=== PATIENT | male | born 1990 | race Two or more races ===

== ENCOUNTER 2016-10-20 11:48 | Emergency (ER) | payer OTHER ==
[2016-10-20 11:58] VITALS: BP 129/85; PULSE 89; TEMP 97.7; BMI 32.5
--- NOTE | 2016-10-20 12:20 | PDOC ---
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; NO OTHER TRAUMA NOTED Upper Extremity Pain Location: right: wrist Past History - Past Medical History Allergies/Adverse Reactions: Allergies Allergy/AdvReac Type Severity Reaction Status Date / Time No Known Allergies Allergy Verified 10/20/16 11:53 Home Medications: Ambulatory Orders NK [No Known Home Medication] 10/20/16 Anemia: No Suicide Attempt (Hx): No Thyroid Disease: No - Surgical History Orthopedic Surgery: Yes (BILATERAL KNEE-MENISCUS) - Immunization History Immunization Up to Date: Yes - Psycho/Social/Smoking Cessation Hx Anxiety: No Suicidal Ideation: No Smoking Status: Yes Smoking History: Never smoked Have you smoked in the past 12 months: No Number of Cigarettes Smoked Daily: 3 Cigars Per Day: 0 Information on smoking cessation initiated: Yes 'Breaking Loose' booklet given: 10/22/14 Hx Alcohol Use: No Drug/Substance Use Hx: No Substance Use Type: None Hx Substance Use Treatment: No Review of Systems - Review of Systems Constitutional: Yes: Malaise. No: Chills, Fever Respiratory: No: Symptoms reported, Cough Musculoskeletal: Yes: Joint Pain, Joint Stiffness. No: Joint Swelling, Muscle Pain Neurological: No: Numbness, Paresthesia, Tingling *Physical Exam - Vital Signs Last Vital Signs Temp Pulse Resp BP Pulse Ox 97.7 F 89 16 129/85 98 10/20/16 11:54 10/20/16 11:54 10/20/16 11:54 10/20/16 11:54 10/20/16 11:54 - Physical Exam General Appearance: Yes: Appropriately Dressed. No: Apparent Distress HEENT: positive: Pharynx Normal Respiratory/Chest: positive: Lungs Clear, Normal Breath Sounds. negative: Chest Tender Musculoskeletal: positive: Other (TENDER TO RADIAL LATERAL WRIST; NOT HOT TO TOUCH, NO REDNESS; LIMITED ROM) Integumentary: negative: Erythema, Rash, Swelling, Bruising Neurologic: positive: Fully Oriented, Alert. negative: Sensory Deficit ED Treatment Course - RADIOLOGY Radiology Studies Ordered: Category Date Time Status WRIST W/HAND-RIGHT* [RAD] Stat Radiology 10/20/16 12:10 Ordered Medical Decision Making - Medical Decision Making 10/20/16 12:56 WILL SUGGEST PT FOLLOW UP WITH [facility] FOR FURTHER WORK; WILL SUGGEST SPLINT AT BEDTIME AND NSAIDS *DC/Admit/Observation/Transfer Diagnosis at time of Disposition: Strain of right wrist Qualifiers: Encounter type: initial encounter Qualified Code(s): S66.911A - Strain of unspecified muscle, fascia and tendon at wrist and hand level, right hand, initial encounter - Discharge Dispostion Disposition: HOME Condition at time of disposition: Stable Admit: No - Referrals Referrals: Adrian Mckeon MD [Staff Physician] - - Patient Instructions Additional Instructions: WEAR SPLINT NEEDED AND AT BED; NAPROSYN X 10 DAYS - Post Discharge Activity Work/School Note: Back to Work
[2016-10-20] MEDS ORDERED: KETOROLAC TROMETHAMINE 60 MG/2 ML VIAL IM ONE (12:33)
[2016-10-20] MEDS ORDERED: KETOROLAC TROMETHAMINE 60 MG/2 ML VIAL ONE (12:35)
== END 2016-10-20 13:05 | disposition home or self-care (01) ==
LOC: JERFT 11:48
PROC: 3E0233Z Introduction of Anti-inflammatory into Muscle, Percutaneous Approach (ICD-10-PCS; principal; 2016-10-20)
PROC: 2W3EX1Z Immobilization of Right Hand using Splint (ICD-10-PCS; 2016-10-20)
DX: S66.911A Strain of unspecified muscle, fascia and tendon at wrist and hand level, right hand, initial encounter (principal); X58.XXXA Exposure to other specified factors, initial encounter; Y93.89 Activity, other specified; Y92.9 Unspecified place or not applicable; Z72.0 Tobacco use
CPT/HCPCS: 29125; 73110-TC-RT; 73130-TC-RT; 96372; 99281-25

== ENCOUNTER 2018-10-31 09:29 | Emergency (ER) | payer SELFPAY ==
[2018-10-31 09:56] VITALS: BP 139/70; PULSE 74; TEMP 97.9; BMI 35.4
--- NOTE | 2018-10-31 11:25 | PDOC ---
History of Present Illness - General Chief Complaint: Cold Symptoms Stated Complaint: FLU SYMPTOMS Time Seen by Provider: 10/31/18 11:12 History Source: Patient Exam Limitations: No Limitations - History of Present Illness Initial Comments: 10/31/18 11:19 Patient came to emergency department with complaints of cough, fevers, flulike symptoms for the past 3 days. states has take 2 800mg tabs of Motrin for pain and fever relief - I know its too much but " I am bullet proof" . 10/31/18 11:21 Timing/Duration: reports: getting worse Severity: reports: mild Associated Symptoms: reports: chest pain/soreness, cough, fever/chills, nasal congestion Past History - Travel Traveled outside of the country in the last 30 days: No Close contact w/someone who was outside of country & ill: No - Past Medical History Allergies/Adverse Reactions: Allergies Allergy/AdvReac Type Severity Reaction Status Date / Time No Known Allergies Allergy Verified 10/31/18 09:54 Home Medications: Ambulatory Orders Naproxen [Naprosyn -] 500 mg PO BID #30 tablet 10/20/16 Anemia: No COPD: No Thyroid Disease: No - Surgical History Orthopedic Surgery: Yes (BILATERAL KNEE-MENISCUS) - Immunization History Immunization Up to Date: Yes - Suicide/Smoking/Psychosocial Hx Smoking Status: Yes Smoking History: Never smoked Have you smoked in the past 12 months: No Number of Cigarettes Smoked Daily: 3 Cigars Per Day: 0 Information on smoking cessation initiated: No 'Breaking Loose' booklet given: 10/22/14 Hx Alcohol Use: No Drug/Substance Use Hx: No Substance Use Type: None Hx Substance Use Treatment: No Review of Systems - Review of Systems Able to Perform ROS?: Yes Is the patient limited Maldivian proficient: Yes Constitutional: Yes: Symptoms Reported, See HPI, Chills, Fever HEENTM: Yes: Symptoms Reported, See HPI, Nose Congestion Respiratory: Yes: Symptoms reported, See HPI, Cough All Other Systems: Reviewed and Negative *Physical Exam - Vital Signs Last Vital Signs Temp Pulse Resp BP Pulse Ox 97.9 F 74 16 139/70 100 10/31/18 09:54 10/31/18 09:54 10/31/18 09:54 10/31/18 09:54 10/31/18 09:54 - Physical Exam General Appearance: Yes: Nourished, Appropriately Dressed, Mild Distress. No: Apparent Distress HEENT: positive: JON, Normal ENT Inspection, TMs Normal (congested but landmarks easily visualized ), Nasal Congestion, Rhinorrhea (clear). negative: Pharyngeal Erythema Neck: positive: Supple. negative: Lymphadenopathy (R), Lymphadenopathy (L) Respiratory/Chest: positive: Lungs Clear Gastrointestinal/Abdominal: positive: Soft. 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 Unwilling to give medical history and unwilling to cooperate with exam, stated "I don't need to answer your fucking questions I just need some medicine and get the fuck out of here". I told patient that I didn't feel our interaction would be valuable to him and would have another practitioner see him. Patient started to curse again gathered his things and walked out telling [employer] to " and you can suck my jasmeet, bitch. *DC/Admit/Observation/Transfer Diagnosis at time of Disposition: Upper respiratory disease - Discharge Dispostion Disposition: ELOPED Condition at time of disposition: Stable Decision to Admit order: No - Referrals - Patient Instructions - Post Discharge Activity
== END 2018-10-31 11:43 | disposition left against medical advice (07) ==
LOC: JERFT 09:29
DX: J06.9 Acute upper respiratory infection, unspecified (principal)
CPT/HCPCS: 99281-25

== ENCOUNTER 2018-12-06 19:16 | Emergency (ER) | payer OTHER ==
[2018-12-06 20:05] VITALS: BP 113/62; PULSE 91; TEMP 97.5; BMI 36.1
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
== END 2018-12-06 22:20 | disposition home or self-care (01) ==
LOC: JERFT 19:16
DX: M25.511 Pain in right shoulder (principal); M25.561 Pain in right knee; S20.221A Contusion of right back wall of thorax, initial encounter; M25.521 Pain in right elbow; M25.531 Pain in right wrist; V43.62XA Car passenger injured in collision with other type car in traffic accident, initial encounter; Y93.89 Activity, other specified; Y92.410 Unspecified street and highway as the place of occurrence of the external cause
CPT/HCPCS: 70450-TC; 72125-TC; 73030-TC-RT-FY; 73070-TC-RT-FY; 73110-TC-RT-FY; 73130-TC-RT-FY; 73560-TC-RT-FY; 99281-25

== ENCOUNTER 2018-12-20 21:42 | Inpatient (IN) | payer SELFPAY ==
[2018-12-20 21:50] VITALS: BMI 34.0
[2018-12-20] MEDS ORDERED: KETOROLAC TROMETHAMINE 60 MG/2 ML VIAL IM ONE (22:14)
[2018-12-20] MEDS ORDERED: CLINDAMYCIN HCL 150 MG CAPSULE (FP) PO ONE (22:14)
[2018-12-20] MEDS ORDERED: CLINDAMYCIN HCL 150 MG CAPSULE (FP) ONE (22:26)
[2018-12-20] MEDS ORDERED: KETOROLAC TROMETHAMINE 60 MG/2 ML VIAL ONE (22:26)
--- NOTE | 2018-12-20 22:26 | PDOC ---
History of Present Illness - General Chief Complaint: Redness To Affected Area Stated Complaint: LFT HAND SWOLLEN Time Seen by Provider: 12/20/18 22:01 History Source: Patient Exam Limitations: No Limitations Past History - Past Medical History Allergies/Adverse Reactions: Allergies Allergy/AdvReac Type Severity Reaction Status Date / Time No Known Allergies Allergy Verified 12/20/18 21:48 Home Medications: Ambulatory Orders NK [No Known Home Medication] 12/20/18 Anemia: No COPD: No Thyroid Disease: No - Surgical History Orthopedic Surgery: Yes (BILATERAL KNEE-MENISCUS) - Immunization History Immunization Up to Date: Yes - Suicide/Smoking/Psychosocial Hx Smoking Status: Yes Smoking History: Never smoked Have you smoked in the past 12 months: No Number of Cigarettes Smoked Daily: 3 Cigars Per Day: 0 Information on smoking cessation initiated: No 'Breaking Loose' booklet given: 10/22/14 Hx Alcohol Use: No Drug/Substance Use Hx: No Substance Use Type: None Hx Substance Use Treatment: No *Physical Exam - Vital Signs Last Vital Signs Temp Pulse Resp BP Pulse Ox 98.1 F 77 16 136/76 100 12/20/18 21:48 12/20/18 21:48 12/20/18 21:48 12/20/18 21:48 12/20/18 21:48 - Physical Exam General Appearance: No: Apparent Distress Respiratory/Chest: positive: Lungs Clear, Normal Breath Sounds. negative: Respiratory Distress Cardiovascular: positive: Regular Rhythm, Regular Rate, S1, S2. negative: Murmur Gastrointestinal/Abdominal: positive: Normal Bowel Sounds, Soft. negative: Tender, Distended, Guarding, Rebound Integumentary: positive: Erythema (+erythema and warm to L thumb with streaking extending slightly below wrist; +swelling of L thumb, minor healed cut along lateral aspect of L thumb (along distal phalanx)) Neurologic: positive: Alert, Normal Mood/Affect ED Treatment Course - LABORATORY CBC & Chemistry Diagram: 12/20/18 23:10 12/20/18 23:10 - RADIOLOGY Radiology Studies Ordered: Category Date Time Status HAND- LEFT [RAD] Stat Radiology 12/20/18 22:15 Ordered Medical Decision Making - Medical Decision Making 28 y/o hx of B/L knee surgeries, chronic back pain presents with swelling and redness to L thumb from today. 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 +Chills. Denies fever, numbness/weakness. Patient took 1 Percocet (already has at home due to his prior surgeries) around 2 hours ago, but it did not help much with pain. Patient is UTD on tetanus PE concerning for L thumb cellulitis with streaking Plan was to get labs, give IV abx and admit patient, but patient refused admission, stating he needs to go to work tomorrow and cannot miss a day of work Will give Clindamycin, IM toradol; send for L hand xray 12/20/18 22:23 L hand xray reviewed with Dr. England - appears unremarkable After discussing risks of leaving AMA, patient decided to stay in hospital Will get labs Area of cellulitis was demarcated 12/20/18 23:10 *DC/Admit/Observation/Transfer Diagnosis at time of Disposition: Cellulitis Qualifiers: Site of cellulitis: extremity Site of cellulitis of extremity: upper extremity Laterality: left Qualified Code(s): L03.114 - Cellulitis of left upper limb - Discharge Dispostion Condition at time of disposition: Stable Decision to Admit order: Yes - Referrals - Patient Instructions - Post Discharge Activity
[2018-12-20] MEDS ORDERED: morphine CARPU-JECT 4 MG/1 ML DISP.SYRIN IVPUSH ONE (23:11)
[2018-12-20 23:20] LABS: BASO % 0.7 % (0-2.0); EOS % 3.1 % (0-4.5); HEMATOCRIT 39.6 % (35.4-49); HEMOGLOBIN 13.6 GM/dL (11.7-16.9); LYMPH % 15.1 % (8-40); MCHC 34.2 g/dl (32.0-35.9); MEAN CELL VOLUME 90.7 fl (80-96); MEAN PLT VOLUME 9.5 fl (7.5-11.1); MONO % 9.4 % (3.8-10.2); NEUT % 71.7 % (42.8-82.8); PLATELET COUNT 155 K/MM3 (134-434); RBC 4.37 M/mm3 (4.00-5.60); RDW 12.2 % (11.9-15.9); WHITE BLOOD COUNT 10.8 K/mm3 (4.0-10.0)
[2018-12-20] MEDS ORDERED: morphine SULFATE 4 MG/ML VIAL ONE (23:24)
[2018-12-20 23:50] LABS: ALBUMIN 3.9 g/dl (3.4-5.0); ALK PHOS 70 U/L (45-117); ANION GAP 5 MMOL/L (8-16); BLOOD UREA NITROGEN 15 mg/dL (7-18); CALCIUM 8.6 mg/dL (8.5-10.1); CHLORIDE 99 mmol/L (98-107); CO2 29 mmol/L (21-32); GLUCOSE,RANDOM 101 mg/dL (74-106); SGOT/AST 19 U/L (15-37); SGPT/ALT 28 U/L (13-61); SODIUM 133 mmol/L (136-145); TOT PROT 7.1 g/dl (6.4-8.2)
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
[2018-12-21] MEDS ORDERED: SODIUM CHLORIDE 500 ML IV STA (00:44)
[2018-12-21] MEDS ORDERED: VANCOMYCIN 1,000 MG in DEXTROSE 5%-WATER - 250 ML IVPB SCH (00:45)
[2018-12-21] MEDS ORDERED: morphine SULFATE 4 MG/ML VIAL IVPUSH PRN ×2 (00:51→10:41)
[2018-12-21] MEDS ORDERED: VANCOMYCIN HCL 1,500 MG in DEXTROSE 5%-WATER - 500 ML IVPB SCH (01:00)
[2018-12-21] MEDS ORDERED: ACETAMINOPHEN 500 MG TABLET (FP) ONE (02:04)
[2018-12-21] MEDS: ACETAMINOPHEN 500 MG TABLET (FP) PO SCH ×3 (02:07→14:59)
--- NOTE | 2018-12-21 07:25 | CONSULT ---
Consult Consult Specialty:: Hand and Microsurgery Reason for Consultation:: left thumb cellulitis - History of Present Illness Chief Complaint: left thumb pain and swelling History of Present Illness: 28yo RHD male PMH bilateral knee surgeries, chronic back pain presents with swelling and redness to left thumb at the site of a prior injury to his thumb. 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 It is exquisitly tender and has decreased motion. He denies fever, numbness/weakness. Patient took 1 Percocet (already has at home due to his prior surgeries) around 2 hours ago, but it did not help much with pain. Patient is UTD on tetanus. we were called to assess. 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 History of Recent Travel: No Home Medications - Allergies Allergies/Adverse Reactions: Allergies Allergy/AdvReac Type Severity Reaction Status Date / Time No Known Allergies Allergy Verified 12/20/18 21:48 - Home Medications Home Medications: Ambulatory Orders Sulfamethoxazole/Trimethoprim [Bactrim Ds -] 1 tab PO BID 7 Days #14 tablet Review of Systems - Review of Systems Constitutional: denies: Chills, Fever Eyes: denies: Blind Spots, Blurred Vision HENT: denies: Difficult Swallowing, Ocular Prosthesis Cardiovascular: denies: Chest Pain, Palpitations Respiratory: denies: Cough, SOB Gastrointestinal: denies: Abdominal Pain, Constipation, Diarrhea Genitourinary: denies: Dysuria, Flank Pain Breasts: reports: No Symptoms Reported. denies: Pain Musculoskeletal: denies: Crepitus, Joint Pain, Joint Swelling Integumentary: denies: Eczema, Incision, Lump Neurological: denies: Seizure, Syncope Endocrine: denies: Unexplained Weight Gain, Unexplained Weight Loss Hematology/Lymphatic: denies: Easily Bruised, Excessive Bleeding Psychiatric: denies: Anxiety, Depression Physical Exam Vital Signs: Vital Signs Temperature 98.3 F 12/21/18 00:42 Pulse Rate 66 12/21/18 00:42 Respiratory Rate 16 12/21/18 00:42 Blood Pressure 138/84 12/21/18 00:42 O2 Sat by Pulse Oximetry (%) 99 12/21/18 02:11 Constitutional: Yes: Well Nourished, No Distress, Calm Eyes: Yes: Conjunctiva Clear, EOM Intact HENT: Yes: Atraumatic, Normocephalic Neck: Yes: Supple, Trachea Midline Cardiovascular: Yes: Regular Rate and Rhythm, S1, S2 Respiratory: Yes: Regular, CTA Bilaterally Gastrointestinal: Yes: Normal Bowel Sounds, Soft ...Rectal Exam: Yes: Deferred Renal/: No: CVA Tenderness - Left, CVA Tenderness - Right Breast(s): No: Mass, Nipple Inversion Musculoskeletal: No: Muscle Pain, Muscle Weakness Extremities: No: Cool, Cyanosis Edema: Yes Edema: LUE: 1+ (thumb) Peripheral Pulses WNL: Yes Integumentary: Yes: Body Piercing, Tattoos. No: Incision, Jaundice Wound/Incision: Yes: Reddened (left thumb with streaking dorsally to the forearm. Punture wound that is sealed radial aspect.). No: Draining Neurological: Yes: Alert, Oriented Psychiatric: Yes: Alert, Oriented Labs: CBC, BMP 12/20/18 23:10 12/20/18 23:10 Problem List - Problems (1) Cellulitis Assessment/Plan: 28yo RHD male with left thumb cellulitis extending from a small skin laceration , no acute surgical intervention. Broad spectrum antibiotics PT evaluation for home exercise program he can follow up in clinic to monitor progress. Thank you for the opportunity to participate in the care of this patient. Code(s): L03.90 - CELLULITIS, UNSPECIFIED Qualifiers: Site of cellulitis: extremity Site of cellulitis of extremity: upper extremity Laterality: left Qualified Code(s): L03.114 - Cellulitis of left upper limb (2) Cellulitis of forearm, left Code(s): L03.114 - CELLULITIS OF LEFT UPPER LIMB
--- NOTE | 2018-12-21 08:09 | PN ---
Physical Exam: SUBJECTIVE: Patient seen and examined at bedside this morning. He endorses pain , with pressure over left thumb, with parasthesias radiating to first and second digits ongoing for past three days. He denies drainage or bleeding from the area. He currently denies subjective fevers, chills, shortness of breath, chest pain, palpitations, abdominal pain, nausea, vomiting, diarrhea. OBJECTIVE: Vital Signs Period Temp Pulse Resp BP Sys/Chang Pulse Ox Last 24 Hr 98.1 F-98.3 F 66-77 16-16 136-138/76-84 99-100 GENERAL: The patient is awake, alert, and fully oriented, in no acute distress. HEAD: Normocephalic, atraumatic. EYES: PERRL, extraocular movements intact, sclera anicteric, conjunctiva clear. ENT: Oropharynx clear, without erythema or exudates. Moist mucous membranes. NECK: Trachea midline, full range of motion. Supple without lymphadenopathy. LUNGS: Breath sounds equal, clear to auscultation bilaterally, no wheezes, no crackles. No accessory muscle use. HEART: Regular rate and rhythm, S1, S2 without murmur, rub or gallop. ABDOMEN: Obese abdomen. Soft, nondistended, nontender to light and deep palpation x4 quadrants, no rebound tenderness, no guarding. Normoactive bowel sounds x4 quadrants. no hepatosplenomegaly, no masses. EXTREMITIES: 2+ radial, dorsalis pedis pulses bilaterally. Warm, well-perfused. No lower extremity edema bilaterally. Left hand thumb swollen and erythematous without streaking. Tender to palpation. 1mm laceration noted over left lateral thumb that is non draining, nonbleeding. Difficulty in making fist, or movement of thumb and first three fingers. NEUROLOGICAL: Cranial nerves II through XII grossly intact. Normal speech. No gross focal deficits. PSYCH: Normal mood, normal affect upon my encounter. Laboratory Results - last 24 hr 12/20/18 12/20/18 23:10 23:10 WBC 10.8 H RBC 4.37 Hgb 13.6 Hct 39.6 MCV 90.7 MCH 31.0 MCHC 34.2 RDW 12.2 Plt Count 155 MPV 9.5 Absolute Neuts (auto) 7.7 Neutrophils % 71.7 Lymphocytes % 15.1 D Monocytes % 9.4 Eosinophils % 3.1 Basophils % 0.7 Nucleated RBC % 0 Sodium 133 L Potassium 4.0 Chloride 99 Carbon Dioxide 29 Anion Gap 5 L BUN 15 Creatinine 1.0 Creat Clearance w eGFR 88.34 Random Glucose 101 Calcium 8.6 Total Bilirubin 1.0 AST 19 ALT 28 Alkaline Phosphatase 70 Total Protein 7.1 Albumin 3.9 Active Medications Generic Name Dose Route Start Last Admin Trade Name Freq PRN Reason Stop Dose Admin Acetaminophen 1,000 mg 12/21/18 01:15 12/21/18 06:08 Tylenol - PO Not Given TID [facility] Ceftriaxone Sodium 1 gm/ 50 mls @ 100 mls/hr 12/21/18 10:00 Dextrose IVPB DAILY DEVEN Protocol Vancomycin HCl 1,500 mg/ 500 mls @ 250 mls/hr 12/22/18 01:00 Dextrose IVPB Q24H DEVEN Protocol Morphine Sulfate 4 mg 12/21/18 00:51 12/21/18 06:17 Morphine Sulfate IVPUSH 4 mg Q6H PRN Administration PAIN LEVEL 7 - 10 ASSESSMENT/PLAN: Patient is a 28 year old male with history of left elbow wound with MRSA presents with complaint of left thumb swelling and pain ongoing for the past three days. Cellulitis of left thumb -Pain ongoing for past three days. Patient unable to endorse onciting factor, or initial trauma. Given his occupation of working in [employer], could be secondary to trauma from metal. He also admits to having pets (lizards, bearded dragon). Patient does not recall bites, scratches or trauma from animals. -Patient received Clindamycin 450mg PO in ED -Begun on empiric Vancomycin 1500mg Q24 hours given history of prior MRSA wound -Ceftriaxone 1 gram IV daily for empiric tenosynovitis treatment -Morphine 4mg IV Q4 hours -Acetaminophen 1000mg PO Q8 hours -Follow blood cultures. -ID consult (Dr. Summers) -Hand surgery (Dr. Hand) Hyponatremia -Resolving. Sodium 135 this morning, -Follow BMP Hypokalemia -Potassium 3.4 -Repleted with potassium chloride 40meq PO -Follow BMP FEN -No IV fluids indicated -Hypokalemia, repleted. Follow BMP -Regular diet Prophylaxis -Lovenox 40mg subq daily Disposition -Continue care in Medical- Surgical floor Visit type - Emergency Visit Emergency Visit: Yes ED Registration Date: 12/21/18 Care time: The patient presented to the Emergency Department on the above date and was hospitalized for further evaluation of their emergent condition. - New Patient This patient is new to me today: Yes Date on this admission: 12/21/18 - Critical Care Critical Care patient: No - Discharge Referral Referred to [facility] Med [facility] No
[2018-12-21 08:12] LABS: BASO % 0.4 % (0-2.0); HEMATOCRIT 39.9 % (35.4-49); HEMOGLOBIN 13.6 GM/dL (11.7-16.9); LYMPH % 15.5 % (8-40); MCH 30.8 pg (25.7-33.7); MCHC 34.2 g/dl (32.0-35.9); MEAN PLT VOLUME 9.6 fl (7.5-11.1); NEUT % 70.1 % (42.8-82.8); PLATELET COUNT 148 K/MM3 (134-434); RBC 4.43 M/mm3 (4.00-5.60); RDW 12.6 % (11.9-15.9); WHITE BLOOD COUNT 8.9 K/mm3 (4.0-10.0)
[2018-12-21 08:30] LABS: INR 1.03 (0.83-1.09); PROTHROMBIN TIME (PATIENT) 12.1 SEC (9.7-13.0)
[2018-12-21 08:32] LABS: ACTIVATED PTT 32.9 SECONDS (25.2-36.5)
[2018-12-21 08:46] LABS: ALBUMIN 3.7 g/dl (3.4-5.0); ALK PHOS 69 U/L (45-117); ANION GAP 6 MMOL/L (8-16); BLOOD UREA NITROGEN 16 mg/dL (7-18); CALCIUM 8.5 mg/dL (8.5-10.1); CHLORIDE 99 mmol/L (98-107); CO2 31 mmol/L (21-32); CREATININE 0.8 mg/dL (0.55-1.3); GLUCOSE,RANDOM 81 mg/dL (74-106); MAGNESIUM 2.2 mg/dL (1.8-2.4); POTASSIUM 3.4 mmol/L (3.5-5.1); SGOT/AST 18 U/L (15-37); SGPT/ALT 26 U/L (13-61); SODIUM 135 mmol/L (136-145); TOT PROT 6.8 g/dl (6.4-8.2)
[2018-12-21] MEDS ORDERED: DEXTROSE 5%-WATER - 50 ML IVPB ONE (09:50)
[2018-12-21] MEDS ORDERED: cefTRIAXone SODIUM 1 GM VIAL ONE (09:50)
[2018-12-21] MEDS ORDERED: CEFTRIAXONE 1 GM in DEXTROSE 5%-WATER - 50 ML IVPB SCH (10:00)
[2018-12-21] MEDS ORDERED: POTASSIUM CHLORIDE TABS 10 MEQ TABLET.ER (FP) PO SCH (10:45)
[2018-12-21] MEDS ORDERED: VANCOMYCIN HCL 1,500 MG/500 ML BAG IVPB SCH (11:00)
--- NOTE | 2018-12-21 14:33 | PN ---
Progress Note (short form) - Note Progress Note: ID CONSULT DICTATED CELLULITIS L HAND/ FOREARM R/O TENOSYNOVITIS HX MRSA HX REPTILE EXPOSURE AWAIT C/S HAND SURGERY EVALUATION CONTINUE VANCOMYCIN CEFTRIAXONE
--- NOTE | 2018-12-21 14:53 | PN ---
Teaching Attending Note Name of Resident: Hunter Ren ATTENDING PHYSICIAN STATEMENT I saw and evaluated the patient. I reviewed the resident's note and discussed the case with the resident. I agree with the resident's findings and plan as documented. SUBJECTIVE:c/o pain not relieved with pain medications. states he first noticed swelling in his thumb 4 days ago. does not recall having any injury to the finger. states he tried squeezing his thumb but no drainage was obtained (did not use anything to attempt to lyse the area). states he noted some blackening of the skin which he felt concerning as well as tracking up the arm which prompted him to the ER. had +MRSA in the elbow in the past. contributes many old healed scars from working in the [employer] and exposures. does have lizards and bearded dragons which he states he has not cleaned out the tanks for the past month. also has a cat. denies CP, SOB, fever, chills, rashes or other lesions OBJECTIVE: Last Vital Signs Temp Pulse Resp BP Pulse Ox 98.4 F 67 18 135/73 99 12/21/18 14:03 12/21/18 14:03 12/21/18 09:00 12/21/18 14:03 12/21/18 02:11 General NAD CV s1 S2 RRR no murmur/rub/gallop Lungs CTA B/L No wheezing/rales/rhonchi Extremities L hand hallux swollen and tender, unable to oppose the thumb or move it. with tenderness and erythema streaking up the laterally about 25% up the forearm which appears to have receded from penmark made on presentation. unable to palpate Radial pulse due to pain but hand is warm ASSESSMENT AND PLAN: 28yo M wtih PMH MRSA skin infections presenting with painful and swollen L hallux with no known injury and found to have cellulitis and concerns for tenosynovitis 1. L hallux and forearm cellulitis and concerns for tenosynovitis- afebrile. appears to have improved. nothing seen on imaging for foreign body. on ceftriaxone and vanco day 2. received clinda in the ER and now stopped. will increase pain medications for adequate pain relief. will need to monitor on IV abx for a few days, consider surgery if does not improve over the next few days. f/u Bcx (obtained after abx were started). ID and hand surgery consulted 2. HYponatremia- dehydrated. on IVF 3. hypokalemia- KCl po 4. Obesity- BMI 34. psychosocial rehabilitation counselor on lifestyle modifications 5. DVT ppx- will start lovenox
[2018-12-21] MEDS ORDERED: VANCOMYCIN HCL 1,250 MG in DEXTROSE 5%-WATER - 250 ML IVPB SCH (15:00)
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
[2018-12-21] MEDS ORDERED: PT OWN MED DRAWER 7, Y5N ONE (16:03)
[2018-12-21 21:13] VITALS: BP 136/82; PULSE 68; TEMP 97.9
--- NOTE | 2018-12-22 06:38 | DS ---
Physical Exam: SUBJECTIVE: Patient seen and examined. Patient left hospital against medical advice overnight. OBJECTIVE: Vital Signs Period Temp Pulse Resp BP Sys/Chang Pulse Ox Last 24 Hr 97.9 F-98.4 F 67-68 18-18 135-136/73-82 PHYSICAL EXAM GENERAL: The patient is awake, alert, and fully oriented, in no acute distress. HEAD: Normocephalic, atraumatic. EYES: PERRL, extraocular movements intact, sclera anicteric, conjunctiva clear. ENT: Oropharynx clear, without erythema or exudates. Moist mucous membranes. NECK: Trachea midline, full range of motion. Supple without lymphadenopathy. LUNGS: Breath sounds equal, clear to auscultation bilaterally, no wheezes, no crackles. No accessory muscle use. HEART: Regular rate and rhythm, S1, S2 without murmur, rub or gallop. ABDOMEN: Obese abdomen. Soft, nondistended, nontender to light and deep palpation x4 quadrants, no rebound tenderness, no guarding. Normoactive bowel sounds x4 quadrants. no hepatosplenomegaly, no masses. EXTREMITIES: 2+ radial, dorsalis pedis pulses bilaterally. Warm, well-perfused. No lower extremity edema bilaterally. Left hand thumb swollen and erythematous without streaking. Tender to palpation. 1mm laceration noted over left lateral thumb that is non draining, nonbleeding. Difficulty in making fist, or movement of thumb and first three fingers. NEUROLOGICAL: Cranial nerves II through XII grossly intact. Normal speech. No gross focal deficits. PSYCH: Normal mood, normal affect upon my encounter. LABS Laboratory Results - last 24 hr 12/21/18 12/21/18 12/21/18 07:35 07:35 07:35 WBC 8.9 RBC 4.43 Hgb 13.6 Hct 39.9 MCV 90.0 MCH 30.8 MCHC 34.2 RDW 12.6 Plt Count 148 MPV 9.6 Absolute Neuts (auto) 6.3 Neutrophils % 70.1 Lymphocytes % 15.5 Monocytes % 9.0 Eosinophils % 5.0 H Basophils % 0.4 Nucleated RBC % 0 PT with INR 12.10 INR 1.03 PTT (Actin FS) 32.9 Sodium 135 L Potassium 3.4 L Chloride 99 Carbon Dioxide 31 Anion Gap 6 L BUN 16 Creatinine 0.8 Creat Clearance w eGFR 114.29 Random Glucose 81 Calcium 8.5 Phosphorus 4.0 Magnesium 2.2 Total Bilirubin 1.0 AST 18 ALT 26 Alkaline Phosphatase 69 Total Protein 6.8 Albumin 3.7 HOSPITAL COURSE: Date of Admission:12/21/18 Date of Discharge: 12/22/18 Patient is a 28 year old male with history of left elbow wound with MRSA presents with complaint of left thumb swelling and pain ongoing for the past three days. Patient was evaluated by infectious disease physician; initiated empiric vancomycin (prior history of MRSA positive wound), and Ceftriaxone (for empiric tenosynovitis treatment). Pain controlled with IV Morphine. Patient was evaluated by hand surgery. In the evening, patient left against medical advice. Risks of leaving the hospital (worsening condition, sepsis, loss of motor, sensory function of the hand or any other part of body, permanent disability, ) were explained to patient who verbalized understanding. Sent one week supply prescription for Bactrim DS to his pharmacy. Discussed with patient over the phone regarding the importance of returning to nearest hospital to continue treatment, and IV antibiotics. Minutes to complete discharge: 35 Discharge Summary Reason For Visit: CELLULITIS Condition: Stable - Instructions Diet, Activity, Other Instructions: Patient was admitted for cellulitis of left thumb. Patient left against medical advice. Risks benefits explained to patient who verbalized understanding. Sent prescription for 1 week Bactrim DS to patient's pharmacy. Dicussed with patient over the phone, and informed him of the importance to return to nearest hospital to continue further treatment including antibiotics. Disposition: AGAINST MEDICAL ADVICE - Home Medications Comprehensive Discharge Medication List: Ambulatory Orders NK [No Known Home Medication] 12/20/18 This patient is new to me today: No Emergency Visit: Yes ED Registration Date: 12/21/18 Care time: The patient presented to the Emergency Department on the above date and was hospitalized for further evaluation of their emergent condition. Critical Care patient: No - Discharge Referral Referred to [facility] Med P.C.: No
[2018-12-22] MEDS ORDERED: ENOXAPARIN NA (PORCINE) 40 MG/0.4 ML DISP.SYRIN SQ SCH (10:00)
[2018-12-22] MEDS ORDERED: CEFTRIAXONE 2 GM in DEXTROSE 5%-WATER 100 ML IVPB SCH (10:00)
== END 2018-12-21 21:15 | disposition left against medical advice (07) | DRG 383 ==
LOC: JER 21:42 → JERBED 12-21 00:07 → J6S 12-21 03:29
PROVIDERS: ADMIT Internal Medicine; ATTEND Internal Medicine
DX: L03.012 Cellulitis of left finger (principal); E87.1 Hypo-osmolality and hyponatremia; E87.6 Hypokalemia; E66.9 Obesity, unspecified; Z68.34 Body mass index [BMI] 34.0-34.9, adult; F17.210 Nicotine dependence, cigarettes, uncomplicated; F12.10 Cannabis abuse, uncomplicated
CPT/HCPCS: 36415; 73130-TC-LT-FY; 80053; 83735; 84100; 85025; 85610; 85730; 87040; 99285-25

== ENCOUNTER 2019-04-05 11:06 | Emergency (ER) | payer BC, OTHER ==
[2019-04-05 11:12] VITALS: BMI 35.4
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
[2019-04-05] MEDS ORDERED: ACETAMINOPHEN 325 MG TABLET (FP) PO ONE (11:39)
[2019-04-05] MEDS ORDERED: CYCLOBENZAPRINE HCL 10 MG TABLET (FP) PO ONE (11:39)
[2019-04-05] MEDS ORDERED: LIDOCAINE 5% TOPICAL PATCH TP ONE (11:39)
[2019-04-05] MEDS ORDERED: IBUPROFEN 400 MG TABLET (FP) PO ONE ×2 (11:49→12:01)
[2019-04-05] MEDS ORDERED: CYCLOBENZAPRINE HCL 10 MG TABLET (FP) ONE (12:01)
[2019-04-05] MEDS ORDERED: LIDOCAINE 5% TOPICAL PATCH ONE (12:01)
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
[2019-04-05] MEDS ORDERED: DEXAMETHASONE 4 MG TABLET (FP) PO STA (12:44)
[2019-04-05] MEDS ORDERED: diazePAM CARPU-JECT 10 MG/2 ML DISP.SYRIN IVPUSH ONE (12:59)
[2019-04-05] MEDS ORDERED: DEXAMETHASONE SOD PHOSPHATE 10 MG/1 ML VIAL IVPUSH ONE (12:59)
[2019-04-05] MEDS ORDERED: DEXAMETHASONE SOD PHOSPHATE 10 MG/1 ML VIAL ONE (13:07)
[2019-04-05] MEDS ORDERED: diazePAM 5 MG TABLET ONE (13:10)
[2019-04-05 18:06] VITALS: BP 112/82; PULSE 94; TEMP 98.9
[2019-04-05] MEDS ORDERED: LIDOCAINE PATCH REMOVAL MC SCH (22:00)
== END 2019-04-05 18:52 | disposition home or self-care (01) ==
LOC: JER 11:06
PROC: 3E033NZ Introduction of Analgesics, Hypnotics, Sedatives into Peripheral Vein, Percutaneous Approach (ICD-10-PCS; principal; 2019-04-05)
PROC: 3E0333Z Introduction of Anti-inflammatory into Peripheral Vein, Percutaneous Approach (ICD-10-PCS; 2019-04-05)
DX: M54.2 Cervicalgia (principal); M54.6 Pain in thoracic spine; G89.29 Other chronic pain; V43.62XS Car passenger injured in collision with other type car in traffic accident, sequela
CPT/HCPCS: 72040-TC; 72100-TC-FY; 72141-TC; 72148-TC; 99283-25; J1100

== ENCOUNTER 2020-04-30 03:48 | Emergency (ER) | payer BC, OTHER ==
[2020-04-30 03:54] VITALS: BP 114/43; PULSE 80; TEMP 97.8; BMI 30.7
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
[2020-04-30 04:58] LABS: BASO % 0.7 % (0-2.0); EOS % 10.2 % (0-4.5); HEMATOCRIT 39.5 % (35.4-49); HEMOGLOBIN 13.2 GM/dL (11.7-16.9); LYMPH % 24.3 % (8-40); MCH 29.5 pg (25.7-33.7); MCHC 33.4 g/dl (32.0-35.9); MEAN CELL VOLUME 88.3 fl (80-96); MEAN PLT VOLUME 9.7 fl (7.5-11.1); MONO % 7.7 % (3.8-10.2); NEUT % 57.1 % (42.8-82.8); PLATELET COUNT 155 K/MM3 (134-434); RBC 4.48 M/mm3 (4.00-5.60); RDW 13.8 % (11.9-15.9); WHITE BLOOD COUNT 8.4 K/mm3 (4.0-10.0)
[2020-04-30 05:32] LABS: ALBUMIN 3.5 g/dl (3.4-5.0); BILIRUBIN,TOTAL 0.3 mg/dL (0.2-1); BLOOD UREA NITROGEN 14.5 mg/dL (7-18); CALCIUM 8.5 mg/dL (8.5-10.1); CREATININE 1.1 mg/dL (0.55-1.3); POTASSIUM 4.1 mmol/L (3.5-5.1); TOT PROT 6.5 g/dl (6.4-8.2)
== END 2020-04-30 07:40 | disposition home or self-care (01) ==
LOC: FER 03:48
DX: L03.115 Cellulitis of right lower limb (principal); L03.116 Cellulitis of left lower limb
CPT/HCPCS: 36415; 71046-TC-FY; 80053; 84443; 85025; 85379; 93970-TC; 99284-25

== ENCOUNTER 2020-10-04 02:20 | Emergency (ER) | payer OTHER ==
[2020-10-04 02:33] VITALS: BP 120/84; PULSE 95; TEMP 98.6
[2020-10-04 02:34] VITALS: BMI 33.5
[2020-10-04] MEDS ORDERED: AZITHROMYCIN 250 MG TABLET ONE (02:45)
[2020-10-04] MEDS ORDERED: ACETAMINOPHEN 500 MG TABLET (FP) ONE (02:45)
[2020-10-04] MEDS ORDERED: AZITHROMYCIN 500 MG TABLET PO ONE (02:45)
[2020-10-04] MEDS ORDERED: ACETAMINOPHEN 500 MG TABLET (FP) PO ONE (02:46)
== END 2020-10-04 02:54 | disposition home or self-care (01) ==
LOC: FER 02:20
DX: H66.90 Otitis media, unspecified, unspecified ear (principal)
CPT/HCPCS: 99284-25

== ENCOUNTER 2023-12-13 22:06 | Emergency (ER) | payer SELFPAY ==
[2023-12-13 22:14] VITALS: BP 135/92; PULSE 84; RESP 20; TEMP 98; BMI 38.4
[2023-12-14 00:18] LABS: BASO % 0.6 % (0-2.0); HEMATOCRIT 45.5 % (35.4-49); HEMOGLOBIN 15.5 GM/dL (11.7-16.9); LYMPH % 23.4 % (8-40); MEAN CELL VOLUME 88.3 fl (80-96); MEAN PLT VOLUME 8.8 fl (7.5-11.1); MONO % 7.4 % (3.8-10.2); NEUT % 65.6 % (42.8-82.8); PLATELET COUNT 207 10^3/uL (134-434); RBC 5.16 M/mm3 (4.00-5.60); RDW 13.5 % (11.9-15.9); WHITE BLOOD COUNT 11.2 K/mm3 (4.0-10.0)
[2023-12-14 00:48] LABS: CHLORIDE 106 mmol/L (98-107); POTASSIUM 3.9 mmol/L (3.5-5.1); SODIUM 137 mmol/L (136-145)
[2023-12-14 00:50] LABS: CALCIUM 9.1 mg/dL (8.5-10.1)
[2023-12-14 00:51] LABS: ALBUMIN 3.9 g/dl (3.4-5.0); ANION GAP 4 mmol/L (4-13); BLOOD UREA NITROGEN 14.6 mg/dL (7-18); CO2 27 mmol/L (21-32); GLUCOSE,RANDOM 97 mg/dL (74-106)
[2023-12-14 00:54] LABS: SGOT/AST 22 U/L (15-37); SGPT/ALT 62 U/L (13-61)
[2023-12-14 00:55] LABS: BILIRUBIN,TOTAL 0.5 mg/dL (0.2-1); TOT PROT 7.4 g/dl (6.4-8.2)
[2023-12-14 00:57] LABS: ALK PHOS 84 U/L (45-117)
[2023-12-14 00:59] LABS: N-TERMINAL BNP 18.3 pg/ml (5-125)
[2023-12-14 03:20] LABS: PH,URINE 5.5 (5.0-8.0); URINE APPEARANCE CLEAR; URINE BILIRUBIN NEGATIVE (NEGATIVE); URINE COLOR YELLOW; URINE GLUCOSE (UA) NEGATIVE (NEGATIVE); URINE KETONE TRACE (NEGATIVE); URINE LEUK ESTERASE NEGATIVE (NEGATIVE); URINE NITRITE NEGATIVE (NEGATIVE); URINE PROTEIN NEGATIVE (NEGATIVE)
== END 2023-12-14 01:17 | disposition left against medical advice (07) ==
LOC: JER 22:06
DX: R22.43 Localized swelling, mass and lump, lower limb, bilateral (principal); I87.2 Venous insufficiency (chronic) (peripheral); M54.9 Dorsalgia, unspecified
CPT/HCPCS: 36415; 71046-TC-FY; 76775-TC; 80053; 80307; 81003; 83880; 84484; 85025; 93970-TC; 99285-25